=== PATIENT | female | born 1935 | race African-American/Black ===

== ENCOUNTER 2021-06-24 23:49 | Inpatient (IN) | payer OTHER, MEDICAID ==
[~2021-06-24] VITALS: Ht 162.6 cm; Wt 68.9 kg
[~2021-06-24 23:49] MED LIST: clonidine; lisinopril
[2021-06-25] MEDS ORDERED: MAGNESIUM/ALUMINUM HYDROXIDE/SIMETHICONE 30ML UDC PO STA (05:35)
[2021-06-25] MEDS ORDERED: ONDANSETRON HCL 4MG/2ML INJ IV STA (05:35)
[2021-06-25 07:21] LABS: BASOPHILS % 0.3 % (0.0-2.0); HEMATOCRIT. 35.2 % (36.0-48.0); HEMOGLOBIN. 11.7 g/dL (12.0-16.0); MEAN CORPUSCULAR HEMOGLOBIN 24.6 pg (28.0-32.0); MEAN PLATELET VOLUME 9.2 fl (7.4-10.4); MONOCYTES % 4.5 % (2.0-8.0); NEUTROPHILS % 87.2 % (40.0-76.0); PLATELET 169 x1000/uL (130-400); RED BLOOD CELL COUNT 4.75 mill/uL (4.2-5.4); RED CELL DISTRIBUTION WIDTH 16.6 % (11.6-14.6)
[2021-06-25 07:31] LABS: CHLORIDE 97 mEq/L (98-107)
[2021-06-25 08:55] LABS: CLARITY URINE CLEAR (CLEAR); COLOR URINE YELLOW (YELLOW); KETONES URINE TRACE (NEGATIVE); LEUKOCYTE ESTERASE URINE 1+ (NEGATIVE); NITRITE URINE NEGATIVE (NEGATIVE); OCCULT BLOOD URINE NEGATIVE (NEGATIVE); PH URINE 6.5 (4.5-8.0); PROTEIN URINE 1+ (NEGATIVE); SPECIFIC GRAVITY URINE 1.013 (1.005-1.030)
[2021-06-25] MEDS ORDERED: CEFTRIAXONE 1 G PREMIX 50 ML IV ONE (11:45)
[2021-06-25] MEDS ORDERED: SODIUM CHLORIDE 0.9% 1,000 ML IV ONE (12:00)
[2021-06-25] MEDS ORDERED: DOCUSATE SODIUM 100MG CAPSULE PO PRN (16:15)
[2021-06-25] MEDS ORDERED: ACETAMINOPHEN 650MG SUPP PR PRN (16:15)
[2021-06-25] MEDS ORDERED: LORAZEPAM 0.5MG TABLET PO PRN (16:15)
[2021-06-25] MEDS ORDERED: ONDANSETRON HCL 4MG/2ML INJ IV PRN (16:15)
[2021-06-25] MEDS ORDERED: MAGNESIUM/ALUMINUM HYDROXIDE/SIMETHICONE 30ML UDC PO PRN (16:15)
[2021-06-25] MEDS ORDERED: CEFTRIAXONE 1 G PREMIX 50 ML IV SCH (16:15)
[2021-06-25] MEDS ORDERED: NA PHOS,M-B/NA PHOS,DI-BA ENEMA 118ML PR PRN (16:15)
[2021-06-25] MEDS ORDERED: DIPHENHYDRAMINE 50MG/ML VIAL IV PRN (16:15)
[2021-06-25] MEDS ORDERED: IPRATROPIUM/ALBUTEROL 0.5-3(2.5)MG/3ML NEB NEB PRN (16:15)
[2021-06-25] MEDS ORDERED: ACETAMINOPHEN 325MG TABLET PO PRN (16:15)
[2021-06-25] MEDS ORDERED: DEXTROSE 50% WATER 50ML SYRINGE IV PRN (16:15)
[2021-06-25] MEDS ORDERED: MORPHINE SULFATE 2 MG/ML CPJ (NOT FOR IM USE) IV PRN (16:15)
[2021-06-25] MEDS ORDERED: GUAIFENESIN 200MG/10ML SUGAR FREE UDC PO PRN (16:15)
[2021-06-25] MEDS ORDERED: HYDROCODONE/ACETAMINOPHEN 5/325MG TABLET PO PRN (16:15)
[2021-06-25] MEDS ORDERED: NALOXONE HCL 0.4MG/ML VIAL IV PRN (16:30)
[2021-06-25] MEDS: ENOXAPARIN 40MG/0.4ML SYR SUBCUT SCH (16:37)
[2021-06-25] MEDS: SODIUM CHLORIDE 0.9% 1,000 ML IV SCH (16:38)
[2021-06-25] MEDS: CLONIDINE 0.1MG TABLET PO PRN (16:38)
[2021-06-25] MEDS: AMLODIPINE 5MG TABLET PO SCH (16:45)
[2021-06-25] MEDS: BLOOD SUGAR DIAGNOSTIC STRIP TEST SCH ×2 (17:00→21:07)
[2021-06-25 17:13] LABS: INR 1.1
[2021-06-25] MEDS ORDERED: POTASSIUM CHLORIDE INJ 40 MEQ in DEXT 5% WATER 250 ML IV NR (18:00)
[2021-06-25] MEDS: INSULIN LISPRO 100 UNITS/ML SUBCUT SCH ×2 (20:03→21:00)
[2021-06-25 20:30] VITALS: BP 132/84
[2021-06-25] MEDS: FAMOTIDINE 20MG TABLET PO SCH (21:08)
[2021-06-25] MEDS ORDERED: LOSA100T32 MT (22:38)
[2021-06-25] MEDS ORDERED: METF-416 MT (22:38)
[2021-06-26] VITALS (7 sets, daily range): BP systolic 147–166; BP diastolic 83–108
[2021-06-26 07:22] LABS: BASOPHILS % 0.6 % (0.0-2.0); EOSINOPHILS % 0.3 % (0.0-5.0); HEMATOCRIT. 37.9 % (36.0-48.0); HEMOGLOBIN. 12.6 g/dL (12.0-16.0); LYMPHOCYTES % 24.9 % (20.0-50.0); MEAN CORPUSCULAR HEMOGLOBIN 24.7 pg (28.0-32.0); MEAN CORPUSCULAR VOLUME 74.4 fL (81.0-99.0); MEAN PLATELET VOLUME 9.1 fl (7.4-10.4); MONOCYTES % 12.4 % (2.0-8.0); NEUTROPHILS % 61.8 % (40.0-76.0); PLATELET 128 x1000/uL (130-400); RED BLOOD CELL COUNT 5.09 mill/uL (4.2-5.4); RED CELL DISTRIBUTION WIDTH 16.7 % (11.6-14.6)
[2021-06-26 07:27] LABS: CHLORIDE 102 mEq/L (98-107)
[2021-06-26] MEDS: INSULIN LISPRO 100 UNITS/ML SUBCUT SCH ×4 (08:02→21:12)
[2021-06-26] MEDS: AMLODIPINE 5MG TABLET PO SCH (08:04)
[2021-06-26] MEDS: BLOOD SUGAR DIAGNOSTIC STRIP TEST SCH ×4 (08:18→20:58)
[2021-06-26] MEDS ORDERED: POTASSIUM CHLORIDE 20MEQ TABLET SR PO SCH (10:30)
[2021-06-26] MEDS: CEFTRIAXONE 1,000 MG in DEXTROSE 5% WATER 50 ML IV SCH (13:13)
[2021-06-26] MEDS: SODIUM CHLORIDE 0.9% 1,000 ML IV SCH ×2 (13:14→20:57)
[2021-06-26] MEDS ORDERED: METOPROLOL TARTRATE 25MG TABLET PO SCH (14:30)
[2021-06-26] MEDS: METOPROLOL TARTRATE 25MG TABLET PO SCH (15:02)
[2021-06-26] MEDS: ENOXAPARIN 40MG/0.4ML SYR SUBCUT SCH ×2 (16:00→16:12)
[2021-06-26] MEDS: CLONIDINE 0.1MG TABLET PO PRN (20:56)
[2021-06-26] MEDS: FAMOTIDINE 20MG TABLET PO SCH (20:56)
[2021-06-27] VITALS (7 sets, daily range): BP systolic 137–174; BP diastolic 76–102
[2021-06-27 06:08] LABS: BASOPHILS % 0.6 % (0.0-2.0); EOSINOPHILS % 0.4 % (0.0-5.0); HEMATOCRIT. 37.5 % (36.0-48.0); HEMOGLOBIN. 12.6 g/dL (12.0-16.0); LYMPHOCYTES % 27.9 % (20.0-50.0); MEAN CORPUSCULAR HEMOGLOBIN 25.1 pg (28.0-32.0); MEAN CORPUSCULAR VOLUME 74.5 fL (81.0-99.0); MEAN PLATELET VOLUME 8.9 fl (7.4-10.4); MONOCYTES % 10.2 % (2.0-8.0); NEUTROPHILS % 60.9 % (40.0-76.0); PLATELET 98 x1000/uL (130-400); RED BLOOD CELL COUNT 5.03 mill/uL (4.2-5.4); RED CELL DISTRIBUTION WIDTH 16.9 % (11.6-14.6)
[2021-06-27 06:21] LABS: CHLORIDE 105 mEq/L (98-107)
[2021-06-27] MEDS: BLOOD SUGAR DIAGNOSTIC STRIP TEST SCH ×3 (06:29→17:20)
[2021-06-27 06:43] LABS: LDL CHOLESTEROL 63 mg/dL (5-100)
[2021-06-27 06:46] LABS: HDL CHOLESTEROL 43 mg/dL (40-59)
[2021-06-27] MEDS: AMLODIPINE 5MG TABLET PO SCH (08:42)
[2021-06-27] MEDS: INSULIN LISPRO 100 UNITS/ML SUBCUT SCH ×3 (08:42→17:49)
[2021-06-27] MEDS: METOPROLOL TARTRATE 25MG TABLET PO SCH (08:42)
[2021-06-27] MEDS: SODIUM CHLORIDE 0.9% 1,000 ML IV SCH (09:00)
[2021-06-27] MEDS: CEFTRIAXONE 1,000 MG in DEXTROSE 5% WATER 50 ML IV SCH (10:42)
[2021-06-27] MEDS ORDERED: METOPROLOL TARTRATE 25MG TABLET PO NR (11:00)
[2021-06-27] MEDS ORDERED: METO-539 MT (14:27)
[2021-06-27] MEDS ORDERED: AMLO5TAB4 MT (14:27)
[2021-06-27] MEDS ORDERED: LEVO500T89 MT (14:27)
[2021-06-27] MEDS ORDERED: AMLODIPINE 5MG TABLET PO SCH (14:30)
[2021-06-27] MEDS ORDERED: METOPROLOL TARTRATE 25MG TABLET PO SCH (21:00)
== END 2021-06-27 18:00 | disposition home or self-care (01) | DRG 690 ==
LOC: ER 23:49 → 6WST 06-25 13:50 → EDBEDREQTM 06-25 13:54 → EDBEDREQ 06-25 13:54 → SUPCPDRO 06-25 16:38 → ENRESERV 06-25 18:30
PROVIDERS: ADMIT Internal Medicine; ATTEND Internal Medicine
DX: N12 Tubulo-interstitial nephritis, not specified as acute or chronic (principal); D68.9 Coagulation defect, unspecified; E87.1 Hypo-osmolality and hyponatremia; K76.0 Fatty (change of) liver, not elsewhere classified; I10 Essential (primary) hypertension; E86.0 Dehydration; R00.0 Tachycardia, unspecified; E87.6 Hypokalemia; D17.79 Benign lipomatous neoplasm of other sites; K80.20 Calculus of gallbladder without cholecystitis without obstruction; Z20.822 Contact with and (suspected) exposure to COVID-19; E11.65 Type 2 diabetes mellitus with hyperglycemia; D64.9 Anemia, unspecified; Z90.710 Acquired absence of both cervix and uterus; Z79.899 Other long term (current) drug therapy
CPT/HCPCS: 36415; 71045; 74177; 80048; 80053; 80061; 81003; 82962; 83036; 83880; 84443; 84484; 85025; 87426; 93306; 93970; 97161; 99285; C9803; J0696; J1650; J1815; J2405; J3480; J7030; J7060; U0003; U0005

== ENCOUNTER 2022-10-01 10:25 | Emergency (ER) | payer OTHER, MEDICAID ==
[~2022-10-01] VITALS: Ht 162.6 cm; Wt 72.0 kg
[~2022-10-01 10:25] MED LIST changes: +AMLO5TAB4 MT; +LEVO-65 MT; +LOSA100T32 MT; +METF-416 MT; +METO-539 MT; -clonidine; -lisinopril
[2022-10-01] MEDS ORDERED: ACETAMINOPHEN 325MG TABLET PO ONE (12:45)
[2022-10-01] MEDS ORDERED: SODIUM CHLORIDE 0.9% 1,000 ML IV ONE (13:00)
[2022-10-01 14:04] LABS: BASOPHILS % 0.3 % (0.0-2.0); EOSINOPHILS % 0.5 % (0.0-5.0); HEMATOCRIT. 35.5 % (36.0-48.0); HEMOGLOBIN. 11.6 g/dL (12.0-16.0); LYMPHOCYTES % 20.5 % (20.0-50.0); MEAN CORPUSCULAR HEMOGLOBIN 22.9 pg (28.0-32.0); MEAN CORPUSCULAR VOLUME 70.1 fL (81.0-99.0); MEAN PLATELET VOLUME 8.8 fl (7.4-10.4); MONOCYTES % 7.3 % (2.0-8.0); NEUTROPHILS % 71.4 % (40.0-76.0); PLATELET 211 x1000/uL (130-400); RED BLOOD CELL COUNT 5.07 mill/uL (4.2-5.4)
[2022-10-01 14:12] LABS: CHLORIDE 100 mEq/L (98-107)
[2022-10-01 14:13] LABS: CLARITY URINE CLEAR (CLEAR); COLOR URINE YELLOW (YELLOW); KETONES URINE NEGATIVE (NEGATIVE); LEUKOCYTE ESTERASE URINE 2+ (NEGATIVE); NITRITE URINE NEGATIVE (NEGATIVE); OCCULT BLOOD URINE NEGATIVE (NEGATIVE); PH URINE 7.5 (4.5-8.0); PROTEIN URINE NEGATIVE (NEGATIVE); SPECIFIC GRAVITY URINE 1.007 (1.005-1.030); UROBILINOGEN URINE 0.2 E.U./dL (0.2-1.0)
[2022-10-01] MEDS ORDERED: NITR-87 MT (14:34)
[2022-10-01] MEDS ORDERED: ACET-2708 MT (14:34)
[2022-10-01] MEDS ORDERED: POTASSIUM CHLORIDE 20MEQ/PACKET PO ONE (14:45)
[2022-10-01 15:01] VITALS: BP 128/72
== END 2022-10-01 15:19 | disposition home or self-care (01) ==
LOC: ER 10:25 → CANBEDREQ 10-03 11:04
DX: J02.8 Acute pharyngitis due to other specified organisms (principal); N39.0 Urinary tract infection, site not specified; E87.6 Hypokalemia; E11.9 Type 2 diabetes mellitus without complications; I10 Essential (primary) hypertension; Z90.710 Acquired absence of both cervix and uterus; Z79.84 Long term (current) use of oral hypoglycemic drugs
CPT/HCPCS: 36415; 71045; 80053; 81003; 83880; 84484; 85025; 93005; 96360; 99285; J7030

== ENCOUNTER 2023-05-11 16:35 | Inpatient (IN) | payer OTHER, MEDICAID ==
[~2023-05-11] VITALS: Ht 162.6 cm; Wt 69.0 kg
[~2023-05-11 16:35] MED LIST changes: +ACET-2708 MT; -LOSA100T32 MT; +LOSA100T33 MT; +NITR-87 MT
[2023-05-11] MEDS ORDERED: MORPHINE SULFATE 4 MG/ML CPJ (NOT FOR IM USE) IV STA (16:49)
[2023-05-11] MEDS ORDERED: ONDANSETRON HCL 4MG/2ML INJ IV STA (16:49)
[2023-05-11] MEDS ORDERED: SODIUM CHLORIDE 0.9% 1,000 ML IV ONE (17:00)
[2023-05-11 18:25] LABS: CLARITY URINE CLEAR (CLEAR); COLOR URINE YELLOW (YELLOW); GLUCOSE URINE NEGATIVE (NEGATIVE); KETONES URINE TRACE (NEGATIVE); LEUKOCYTE ESTERASE URINE NEGATIVE (NEGATIVE); NITRITE URINE NEGATIVE (NEGATIVE); OCCULT BLOOD URINE NEGATIVE (NEGATIVE); PH URINE 7.5 (4.5-8.0); PROTEIN URINE 2+ (NEGATIVE); SPECIFIC GRAVITY URINE 1.011 (1.005-1.030)
[2023-05-11 18:27] LABS: BACTERIA URINE NONE SEEN; RBC URINE 0-2 /hpf (0-2); WBC URINE 0-2 /hpf (0-2); YEAST URINE NONE SEEN
[2023-05-11 18:32] LABS: BASOPHILS % 0.3 % (0.0-2.0); DIFFERENTIAL COMMENT 0; EOSINOPHILS % 0.1 % (0.0-5.0); HEMOGLOBIN. 10.9 g/dL (12.0-16.0); LYMPHOCYTES % 11.8 % (20.0-50.0); MEAN CORPUSCULAR HEMOGLOBIN 22.8 pg (28.0-32.0); MEAN CORPUSCULAR HGB CONC 32.1 g/dL (31.0-37.0); MEAN CORPUSCULAR VOLUME 71.1 fL (81.0-99.0); MEAN PLATELET VOLUME 8.8 fl (7.4-10.4); MONOCYTES % 4.1 % (2.0-8.0); NEUTROPHILS % 83.7 % (40.0-76.0); PLATELET 195 x1000/uL (130-400); RED BLOOD CELL COUNT 4.79 mill/uL (4.2-5.4); RED CELL DISTRIBUTION WIDTH 18.5 % (11.6-14.6); WHITE BLOOD COUNT 11.6 x1000/uL (4.5-11.0)
[2023-05-11 18:37] LABS: PROTHROMBIN TIME 10.8 sec (9.6-11.0)
[2023-05-11 18:41] LABS: SQUAMOUS EPITHELIAL CELL URINE 1+ /lpf (RARE/1+)
[2023-05-11 18:49] LABS: CHLORIDE 99 mEq/L (98-107); INDEX HEMOLYSI 1 (1-3); INDEX ICTERIC 1 (1-4); INDEX LIPEMIC 1 (1-3); POTASSIUM 3.2 mEq/L (3.5-5.1); SODIUM 136 mEq/L (136-145)
[2023-05-11 19:00] LABS: ALANINE AMINOTRANSFERASE 13 IU/L (13-61); ASPARTATE AMINOTRANSFERASE 15 IU/L (15-37); BILIRUBIN TOTAL 0.3 mg/dL (0.1-1.0); CALCIUM 9.1 mg/dL (8.5-10.1); CARBON DIOXIDE 24 mEq/L (21-32); CREATININE 0.8 mg/dL (0.6-1.3); GLUCOSE 121 mg/dL (70-105); PROTEIN TOTAL 8.7 g/dL (6.0-8.3); TROPONIN I HIGH SENSITIVITY 7 ng/L (<54); UREA NITROGEN BLOOD 12 mg/dL (7-21)
[2023-05-11] MEDS ORDERED: POTASSIUM CHLORIDE 20MEQ TABLET SR PO ONE (20:00)
[2023-05-11] MEDS ORDERED: SODIUM CHLORIDE 0.9% 500 ML IV ONE (21:15)
[2023-05-11] MEDS ORDERED: CEFTRIAXONE 1GM PREMIX 50 ML IV ONE (21:15)
[2023-05-11 23:40] VITALS: BP 169/85; PULSE 106; RESP 20; TEMP 97.9
[2023-05-12] VITALS: BP 158/86; PULSE 96; RESP 20; TEMP 97.7
[2023-05-12] MEDS ORDERED: CLONIDINE 0.1MG TABLET PO PRN (01:15)
[2023-05-12] MEDS: DEXT 5%/0.45% NACL 1000ML 1,000 ML IV SCH ×2 (01:15→13:45)
[2023-05-12] MEDS ORDERED: MORPHINE SULFATE 2 MG/ML CPJ (NOT FOR IM USE) IV PRN (01:15)
[2023-05-12] MEDS ORDERED: ONDANSETRON HCL 4MG/2ML INJ IV PRN (01:15)
[2023-05-12 02:02] LABS: CHLORIDE 100 mEq/L (98-107); INDEX HEMOLYSI 1 (1-3); INDEX ICTERIC 1 (1-4); INDEX LIPEMIC 1 (1-3); POTASSIUM 3.3 mEq/L (3.5-5.1); SODIUM 136 mEq/L (136-145)
[2023-05-12 02:04] LABS: BASOPHILS % 0.4 % (0.0-2.0); CALCIUM 9.3 mg/dL (8.5-10.1); CARBON DIOXIDE 26 mEq/L (21-32); DIFFERENTIAL COMMENT 0; EOSINOPHILS % 0.2 % (0.0-5.0); HEMATOCRIT. 35.4 % (36.0-48.0); HEMOGLOBIN. 11.8 g/dL (12.0-16.0); MEAN CORPUSCULAR HEMOGLOBIN 23.8 pg (28.0-32.0); MEAN CORPUSCULAR HGB CONC 33.4 g/dL (31.0-37.0); MEAN CORPUSCULAR VOLUME 71.2 fL (81.0-99.0); MEAN PLATELET VOLUME 8.6 fl (7.4-10.4); MONOCYTES % 8.4 % (2.0-8.0); PLATELET 204 x1000/uL (130-400); RED BLOOD CELL COUNT 4.97 mill/uL (4.2-5.4); RED CELL DISTRIBUTION WIDTH 18.4 % (11.6-14.6)
[2023-05-12 02:08] LABS: CREATININE 0.7 mg/dL (0.6-1.3); GLUCOSE 195 mg/dL (70-105); UREA NITROGEN BLOOD 9 mg/dL (7-21)
[2023-05-12 04:00] VITALS: BP 141/83; PULSE 85; RESP 20; TEMP 97.9
[2023-05-12] MEDS: PIPERACILLIN/TAZOBACTAM 3.375 G in DEXTROSE 5% WATER 50 ML IV SCH ×3 (06:34→21:57)
[2023-05-12 08:00] VITALS: BP 183/88; PULSE 134; RESP 19; TEMP 97.9
[2023-05-12] MEDS: PANTOPRAZOLE SODIUM 40 MG/VIAL IV SCH (08:25)
[2023-05-12] MEDS ORDERED: DEXTROSE 50% WATER 50ML SYRINGE IV PRN (10:00)
[2023-05-12] MEDS ORDERED: DOCUSATE SODIUM 100MG CAPSULE PO PRN (10:00)
[2023-05-12] MEDS ORDERED: IPRATROPIUM/ALBUTEROL 0.5-3(2.5)MG/3ML NEB HHN PRN (10:00)
[2023-05-12] MEDS ORDERED: HYDRALAZINE 20MG/ML VIAL IV PRN (10:00)
[2023-05-12] MEDS ORDERED: ACETAMINOPHEN 325MG TABLET PO PRN ×2 (10:00)
[2023-05-12] MEDS ORDERED: HYDRALAZINE 10 MG in SODIUM CHLORIDE 0.9% 49.5 ML IV PRN (10:15)
[2023-05-12 10:28] LABS: INDEX HEMOLYSI 1 (1-3); INDEX ICTERIC 1 (1-4); INDEX LIPEMIC 1 (1-3)
[2023-05-12 10:32] LABS: IRON 41 ug/dL (50-175); TOTAL IRON BINDING CAPACITY 439 ug/dL (250-450)
[2023-05-12 11:01] LABS: VITAMIN B12 SERUM 200 pg/mL (211-911)
[2023-05-12] MEDS ORDERED: POTASSIUM CHLORIDE INJ 40 MEQ in DEXT 5% WATER 250 ML IV NR (11:30)
[2023-05-12 12:00] VITALS: BP 150/80; PULSE 91; RESP 18; TEMP 98.1
[2023-05-12] MEDS: BLOOD SUGAR DIAGNOSTIC STRIP TEST SCH ×3 (12:20→21:58)
[2023-05-12] MEDS: INSULIN LISPRO 100 UNITS/ML SUBCUT SCH ×3 (12:50→22:02)
[2023-05-12] MEDS: AMLODIPINE 10MG TABLET PO SCH (13:00)
[2023-05-12] MEDS: CYANOCOBALAMIN 1000MCG/ML VIAL IM SCH (13:00)
[2023-05-12] MEDS ORDERED: POTASSIUM CHLORIDE 20MEQ/PACKET PO NR (13:00)
[2023-05-12] MEDS: HYDRALAZINE HCL 25MG TABLET PO SCH ×2 (14:43→21:58)
[2023-05-12 16:00] VITALS: BP 140/81; PULSE 92; RESP 18; TEMP 97.9
[2023-05-12 17:03] LABS: FERRITIN 13 ng/mL (10-291)
[2023-05-12] MEDS: FERROUS SULFATE 325MG TABLET PO SCH (17:50)
[2023-05-12 20:00] VITALS: BP 142/75; PULSE 116; RESP 18; TEMP 97.9
[2023-05-13] VITALS: BP 137/81; PULSE 124; RESP 18; TEMP 96.8
[2023-05-13] MEDS: DEXT 5%/0.45% NACL 1000ML 1,000 ML IV SCH ×2 (01:38→14:45)
[2023-05-13 04:00] VITALS: BP 137/85; PULSE 116; RESP 18; TEMP 97.9
[2023-05-13] MEDS: PIPERACILLIN/TAZOBACTAM 3.375 G in DEXTROSE 5% WATER 50 ML IV SCH (06:43)
[2023-05-13] MEDS: HYDRALAZINE HCL 25MG TABLET PO SCH ×3 (06:43→22:24)
[2023-05-13 06:49] LABS: BASOPHILS % 0.7 % (0.0-2.0); DIFFERENTIAL COMMENT 0; EOSINOPHILS % 0.2 % (0.0-5.0); HEMATOCRIT. 37.6 % (36.0-48.0); HEMOGLOBIN. 12.3 g/dL (12.0-16.0); LYMPHOCYTES % 18.5 % (20.0-50.0); MEAN CORPUSCULAR HEMOGLOBIN 23.4 pg (28.0-32.0); MEAN CORPUSCULAR HGB CONC 32.8 g/dL (31.0-37.0); MEAN CORPUSCULAR VOLUME 71.4 fL (81.0-99.0); MEAN PLATELET VOLUME 8.8 fl (7.4-10.4); MONOCYTES % 7.2 % (2.0-8.0); NEUTROPHILS % 73.4 % (40.0-76.0); PLATELET 215 x1000/uL (130-400); RED BLOOD CELL COUNT 5.26 mill/uL (4.2-5.4); RED CELL DISTRIBUTION WIDTH 18.8 % (11.6-14.6); WHITE BLOOD COUNT 7.7 x1000/uL (4.5-11.0)
[2023-05-13] MEDS: BLOOD SUGAR DIAGNOSTIC STRIP TEST SCH ×4 (07:20→21:19)
[2023-05-13 08:00] VITALS: BP 153/89; PULSE 89; RESP 20; TEMP 96.1
[2023-05-13 08:59] LABS: CHLORIDE 98 mEq/L (98-107); INDEX HEMOLYSI 1 (1-3); INDEX ICTERIC 1 (1-4); INDEX LIPEMIC 1 (1-3); POTASSIUM 3.5 mEq/L (3.5-5.1); SODIUM 133 mEq/L (136-145)
[2023-05-13 09:04] LABS: CALCIUM 8.9 mg/dL (8.5-10.1); CARBON DIOXIDE 26 mEq/L (21-32); CREATININE 0.8 mg/dL (0.6-1.3); GLUCOSE 240 mg/dL (70-105); UREA NITROGEN BLOOD 5 mg/dL (7-21)
[2023-05-13] MEDS: INSULIN LISPRO 100 UNITS/ML SUBCUT SCH ×3 (09:07→21:34)
[2023-05-13] MEDS: FERROUS SULFATE 325MG TABLET PO SCH ×3 (09:08→17:50)
[2023-05-13] MEDS: AMLODIPINE 10MG TABLET PO SCH (09:10)
[2023-05-13] MEDS: CYANOCOBALAMIN 1000MCG/ML VIAL IM SCH (09:10)
[2023-05-13] MEDS: PANTOPRAZOLE SODIUM 40 MG/VIAL IV SCH (09:10)
[2023-05-13 12:00] VITALS: BP 135/93; PULSE 118; RESP 22; TEMP 96.8
[2023-05-13] MEDS: ONDANSETRON HCL 4MG/2ML INJ IV NR ×2 (12:13→17:17)
[2023-05-13] MEDS ORDERED: ONDANSETRON HCL 4MG/2ML INJ IV PRN (15:00)
[2023-05-13] MEDS ORDERED: NALOXONE HCL 0.4MG/ML VIAL IV PRN (15:00)
[2023-05-13 16:00] VITALS: BP 147/74; PULSE 70; RESP 17; TEMP 97.3
[2023-05-13] MEDS ORDERED: NA PHOS,M-B/NA PHOS,DI-BA ENEMA 118ML PR NR (17:15)
[2023-05-13] MEDS ORDERED: LACTULOSE 20G/30ML UDC PO NR (17:15)
[2023-05-13] MEDS ORDERED: DIPHENHYDRAMINE 25MG CAPSULE PO PRN (18:45)
[2023-05-13 20:00] VITALS: BP 139/92; PULSE 109; RESP 16; TEMP 97.5
[2023-05-14] VITALS: BP 139/80; PULSE 102; RESP 17; TEMP 98.2
[2023-05-14] MEDS: METOCLOPRAMIDE HCL 10MG/2ML VIAL IV SCH ×4 (00:08→18:00)
[2023-05-14] MEDS: DEXT 5%/0.45% NACL 1000ML 1,000 ML IV SCH ×2 (03:15→15:45)
[2023-05-14 04:00] VITALS: BP 149/84; PULSE 128; RESP 19; TEMP 97.4
[2023-05-14] MEDS: HYDRALAZINE HCL 25MG TABLET PO SCH ×3 (05:46→20:43)
[2023-05-14] MEDS: BLOOD SUGAR DIAGNOSTIC STRIP TEST SCH ×4 (07:09→20:44)
[2023-05-14] MEDS: FERROUS SULFATE 325MG TABLET PO SCH ×4 (07:28→18:21)
[2023-05-14] MEDS: INSULIN LISPRO 100 UNITS/ML SUBCUT SCH ×5 (07:41→20:44)
[2023-05-14 08:00] VITALS: BP 141/72; PULSE 129; RESP 20; TEMP 98.2
[2023-05-14] MEDS: CYANOCOBALAMIN 1000MCG/ML VIAL IM SCH (08:52)
[2023-05-14] MEDS: AMLODIPINE 10MG TABLET PO SCH (08:52)
[2023-05-14] MEDS: FAMOTIDINE 20MG/2ML VIAL IV SCH (08:52)
[2023-05-14 10:56] LABS: BASOPHILS % 0.4 % (0.0-2.0); DIFFERENTIAL COMMENT 0; EOSINOPHILS % 0.1 % (0.0-5.0); HEMATOCRIT. 38.1 % (36.0-48.0); HEMOGLOBIN. 12.5 g/dL (12.0-16.0); LYMPHOCYTES % 14.9 % (20.0-50.0); MEAN CORPUSCULAR HEMOGLOBIN 23.7 pg (28.0-32.0); MEAN CORPUSCULAR HGB CONC 32.7 g/dL (31.0-37.0); MEAN CORPUSCULAR VOLUME 72.4 fL (81.0-99.0); MEAN PLATELET VOLUME 8.4 fl (7.4-10.4); MONOCYTES % 6.5 % (2.0-8.0); NEUTROPHILS % 78.1 % (40.0-76.0); PLATELET 244 x1000/uL (130-400); RED BLOOD CELL COUNT 5.26 mill/uL (4.2-5.4); RED CELL DISTRIBUTION WIDTH 18.5 % (11.6-14.6); WHITE BLOOD COUNT 8.1 x1000/uL (4.5-11.0)
[2023-05-14 12:00] VITALS: BP 123/69; PULSE 127; RESP 20; TEMP 97.9
[2023-05-14 12:03] LABS: CALCIUM 9.2 mg/dL (8.5-10.1); CHLORIDE 100 mEq/L (98-107); INDEX HEMOLYSI 1 (1-3); INDEX ICTERIC 1 (1-4); INDEX LIPEMIC 1 (1-3); POTASSIUM 3.6 mEq/L (3.5-5.1); SODIUM 132 mEq/L (136-145)
[2023-05-14 12:09] LABS: ALANINE AMINOTRANSFERASE 12 IU/L (13-61); ALBUMIN 4.1 g/dL (3.4-5.0); ASPARTATE AMINOTRANSFERASE 12 IU/L (15-37); BILIRUBIN TOTAL 0.5 mg/dL (0.1-1.0); GLUCOSE 323 mg/dL (70-105); UREA NITROGEN BLOOD 5 mg/dL (7-21)
[2023-05-14] MEDS: DILTIAZEM HCL 30MG TABLET PO SCH ×2 (13:14→20:43)
[2023-05-14 14:32] LABS: CARBON DIOXIDE 19 mEq/L (21-32)
[2023-05-14 16:00] VITALS: BP 97/57; PULSE 127; RESP 20; TEMP 98.2
[2023-05-14] MEDS ORDERED: DIGOXIN 500MCG/2ML AMP IV NR (18:15)
[2023-05-14] MEDS ORDERED: HYDRALAZINE 20MG/ML VIAL IV PRN (18:15)
[2023-05-14] MEDS ORDERED: SODIUM CHLORIDE 0.9% 250 ML IV NR (18:20)
[2023-05-14 20:00] VITALS: BP 110/61; PULSE 100; RESP 17; TEMP 97.3
[2023-05-14 23:13] LABS: INDEX HEMOLYSI 1 (1-3); POTASSIUM 3.1 mEq/L (3.5-5.1)
[2023-05-14 23:28] LABS: CREATINE KINASE 115 IU/L (26-192); CREATINE KINASE MB FRACTION 1.9 ng/mL (0.5-3.6); TROPONIN I HIGH SENSITIVITY 18 ng/L (<54)
[2023-05-15] VITALS: BP 131/93; PULSE 128; RESP 18; TEMP 97.1
[2023-05-15 04:00] VITALS: BP_SYST 117; BP_SYST 120; BP_DIAS 64; BP_DIAS 78; PULSE 119; PULSE 89; RESP 17; RESP 18; TEMP 97.2; TEMP 97.5
[2023-05-15] MEDS: DILTIAZEM HCL 30MG TABLET PO SCH (06:21)
[2023-05-15] MEDS: HYDRALAZINE HCL 25MG TABLET PO SCH (06:21)
[2023-05-15] MEDS: INSULIN LISPRO 100 UNITS/ML SUBCUT SCH ×4 (06:22→20:21)
[2023-05-15] MEDS: DEXT 5%/0.45% NACL 1000ML 1,000 ML IV SCH ×2 (06:22→17:59)
[2023-05-15] MEDS: METOCLOPRAMIDE HCL 10MG/2ML VIAL IV SCH ×5 (06:22→23:15)
[2023-05-15] MEDS: BLOOD SUGAR DIAGNOSTIC STRIP TEST SCH ×4 (06:22→20:21)
[2023-05-15 06:29] LABS: BASOPHILS % 0.6 % (0.0-2.0); DIFFERENTIAL COMMENT 0; EOSINOPHILS % 0.4 % (0.0-5.0); HEMATOCRIT. 36.4 % (36.0-48.0); HEMOGLOBIN. 12.2 g/dL (12.0-16.0); MEAN CORPUSCULAR HEMOGLOBIN 23.8 pg (28.0-32.0); MEAN CORPUSCULAR HGB CONC 33.4 g/dL (31.0-37.0); MEAN CORPUSCULAR VOLUME 71.4 fL (81.0-99.0); MEAN PLATELET VOLUME 8.2 fl (7.4-10.4); MONOCYTES % 8.1 % (2.0-8.0); NEUTROPHILS % 73.9 % (40.0-76.0); PLATELET 231 x1000/uL (130-400); RED BLOOD CELL COUNT 5.11 mill/uL (4.2-5.4); RED CELL DISTRIBUTION WIDTH 18.4 % (11.6-14.6); WHITE BLOOD COUNT 8.2 x1000/uL (4.5-11.0)
[2023-05-15 07:48] LABS: CHLORIDE 103 mEq/L (98-107); INDEX HEMOLYSI 1 (1-3); INDEX ICTERIC 1 (1-4); INDEX LIPEMIC 1 (1-3); POTASSIUM 3.2 mEq/L (3.5-5.1); SODIUM 135 mEq/L (136-145)
[2023-05-15 07:51] LABS: CALCIUM 8.9 mg/dL (8.5-10.1)
[2023-05-15 07:55] LABS: CARBON DIOXIDE 24 mEq/L (21-32); CREATININE 0.8 mg/dL (0.6-1.3); GLUCOSE 184 mg/dL (70-105); UREA NITROGEN BLOOD 7 mg/dL (7-21)
[2023-05-15 08:00] VITALS: BP 95/66; PULSE 113; RESP 18; TEMP 97.2
[2023-05-15] MEDS: CYANOCOBALAMIN 1000MCG/ML VIAL IM SCH (08:46)
[2023-05-15] MEDS: FERROUS SULFATE 325MG TABLET PO SCH ×3 (08:46→17:58)
[2023-05-15] MEDS ORDERED: POTASSIUM CHLORIDE 20MEQ/PACKET PO NR (10:30)
[2023-05-15] MEDS ORDERED: METOPROLOL TARTRATE 25MG TABLET PO SCH (10:45)
[2023-05-15 12:00] VITALS: BP 135/78; PULSE 121; RESP 18; TEMP 96.9
[2023-05-15] MEDS ORDERED: MAGNESIUM 1 G PREMIX 100 ML IV NR (12:00)
[2023-05-15] MEDS ORDERED: METOPROLOL TARTRATE 25MG TABLET PO NR (13:00)
[2023-05-15] MEDS ORDERED: SENNOSIDES/DOCUSATE SOD 8.6/50MG TABLET PO PRN (14:30)
[2023-05-15] MEDS ORDERED: POTASSIUM CHLORIDE 20MEQ TABLET SR PO ONE (15:00)
[2023-05-15 16:00] VITALS: BP 117/64; PULSE 89; RESP 18; TEMP 97.5
[2023-05-15] MEDS: DOCUSATE SODIUM 100MG CAPSULE PO SCH ×2 (16:09→17:00)
[2023-05-15] MEDS: ENOXAPARIN 40MG/0.4ML SYR SUBCUT SCH (16:11)
[2023-05-15 20:00] VITALS: BP 120/53; PULSE 99; RESP 16; TEMP 97.1
[2023-05-15] MEDS: METOPROLOL TARTRATE 25MG TABLET PO SCH (20:20)
[2023-05-16] VITALS: BP 120/60; PULSE 72; RESP 18; TEMP 96.9
[2023-05-16 04:00] VITALS: BP 115/43; PULSE 92; RESP 17; TEMP 96.9
[2023-05-16] MEDS: METOCLOPRAMIDE HCL 10MG/2ML VIAL IV SCH ×2 (05:58→12:49)
[2023-05-16] MEDS: BLOOD SUGAR DIAGNOSTIC STRIP TEST SCH ×2 (05:59→12:40)
[2023-05-16] MEDS: DEXT 5%/0.45% NACL 1000ML 1,000 ML IV SCH (05:59)
[2023-05-16] MEDS: INSULIN LISPRO 100 UNITS/ML SUBCUT SCH ×2 (05:59→12:50)
[2023-05-16 08:00] VITALS: BP 119/65; PULSE 99; RESP 18; TEMP 97.4
[2023-05-16] MEDS: DOCUSATE SODIUM 100MG CAPSULE PO SCH (09:23)
[2023-05-16] MEDS: FAMOTIDINE 20MG/2ML VIAL IV SCH (09:23)
[2023-05-16] MEDS: METOPROLOL TARTRATE 25MG TABLET PO SCH (09:24)
[2023-05-16] MEDS: CYANOCOBALAMIN 1000MCG/ML VIAL IM SCH (09:24)
[2023-05-16] MEDS: ENOXAPARIN 40MG/0.4ML SYR SUBCUT SCH (09:24)
[2023-05-16] MEDS: FERROUS SULFATE 325MG TABLET PO SCH ×2 (09:25→12:50)
[2023-05-16 12:00] VITALS: BP 123/61; PULSE 80; RESP 18; TEMP 97.8
[2023-05-16] MEDS ORDERED: IOHEXOL-350 100 ML BOTTLE ONE (14:42)
[2023-05-16 15:39] VITALS: BP 123/61; PULSE 80; TEMP 97.8; O2SAT 98
== END 2023-05-16 17:15 | disposition home or self-care (01) | DRG 445 ==
LOC: ER 16:35 → 6EST 17:55 → EDBEDREQTM 18:00 → EDBEDREQ 18:00 → 7WST 05-14 18:04
PROVIDERS: ADMIT Internal Medicine; ATTEND Internal Medicine
DX: K80.20 Calculus of gallbladder without cholecystitis without obstruction (principal); E87.20 Acidosis, unspecified; E87.6 Hypokalemia; D72.829 Elevated white blood cell count, unspecified; E11.9 Type 2 diabetes mellitus without complications; D64.9 Anemia, unspecified; I10 Essential (primary) hypertension; E78.5 Hyperlipidemia, unspecified; J45.909 Unspecified asthma, uncomplicated; R79.89 Other specified abnormal findings of blood chemistry; Z90.710 Acquired absence of both cervix and uterus; Z79.899 Other long term (current) drug therapy
CPT/HCPCS: 36415; 71045; 71275; 74018; 74176; 80048; 80053; 81003; 82550; 82553; 82607; 82728; 82746; 82962; 83036; 83540; 83550; 83605; 83735; 84132; 84145; 84439; 84443; 84484; 85025; 85379; 93005; 93306; 93970; 99285; C1893; C9113; J1160; J1650; J1815; J2270; J2405; J2543; J2765; J3420; J3475; J3480; J3490; J7030; J7040; J7060; Q9967; A4315

== ENCOUNTER 2023-11-27 09:02 | Emergency (ER) | payer OTHER, MEDICAID ==
[~2023-11-27] VITALS: Ht 170.2 cm; Wt 65.0 kg
[2023-11-27 09:03] VITALS: O2SAT 98
[2023-11-27 09:35] VITALS: TEMP 98.2
[2023-11-27 10:04] LABS: BASOPHILS % 0.4 % (0.0-2.0); DIFFERENTIAL COMMENT 0; EOSINOPHILS % 0.3 % (0.0-5.0); HEMATOCRIT. 33.2 % (36.0-48.0); HEMOGLOBIN. 11.2 g/dL (12.0-16.0); LYMPHOCYTES % 19.6 % (20.0-50.0); MEAN CORPUSCULAR HEMOGLOBIN 23.6 pg (28.0-32.0); MEAN CORPUSCULAR HGB CONC 33.6 g/dL (31.0-37.0); MEAN CORPUSCULAR VOLUME 70.3 fL (81.0-99.0); MEAN PLATELET VOLUME 7.4 fl (7.4-10.4); MONOCYTES % 5.8 % (2.0-8.0); NEUTROPHILS % 73.9 % (40.0-76.0); PLATELET 247 x1000/uL (130-400); RED BLOOD CELL COUNT 4.72 mill/uL (4.2-5.4); RED CELL DISTRIBUTION WIDTH 19.7 % (11.6-14.6); WHITE BLOOD COUNT 7.9 x1000/uL (4.5-11.0)
[2023-11-27 10:47] LABS: CALCIUM 10.1 mg/dL (8.7-10.4); CARBON DIOXIDE 23 mEq/L (21-32); CHLORIDE 99 mEq/L (98-107); POTASSIUM 3.5 mEq/L (3.5-5.1); SODIUM 133 mEq/L (136-145)
[2023-11-27 10:53] LABS: GLUCOSE 178 mg/dL (70-105); UREA NITROGEN BLOOD 10 mg/dL (9-23)
[2023-11-27] MEDS ORDERED: FURO-151 MT (13:50)
[2023-11-27 14:08] VITALS: BP 131/69; PULSE 92; RESP 18
== END 2023-11-27 14:11 | disposition home or self-care (01) ==
LOC: ER 09:02
DX: J45.909 Unspecified asthma, uncomplicated (principal); R06.02 Shortness of breath; E11.9 Type 2 diabetes mellitus without complications; I10 Essential (primary) hypertension; M79.89 Other specified soft tissue disorders; Z90.89 Acquired absence of other organs
CPT/HCPCS: 36415; 71045; 80048; 82962; 83880; 85025; 93005; 99285